=== PATIENT | male | born 1965 | race Caucasian/White ===

== ENCOUNTER 2023-06-26 15:11 | Emergency (ER) | payer SELFPAY ==
[2023-06-26] MEDS ORDERED: DOXYCYCLINE 100 MG CAP PO ONE (16:37)
[2023-06-26] MEDS ORDERED: CEPHALEXIN 250 MG CAP ONE (16:37)
--- NOTE | 2023-06-26 17:46 | RAD REPORT ---
EXAM DESCRIPTION: US - Extremity Venous Uni Ltd - 06/26/2023 5:00 pm CLINICAL HISTORY: SWELLING Leg swelling and edema. COMPARISON: No comparisons FINDINGS: Left lower extremity venous system was interrogated with Doppler technique. Normal flow, c ompressibility and augmentation was noted. There is no DVT present. IMPRESSION: No evidence of left lower extremity deep venous thrombosis.
--- NOTE | 2023-06-26 17:52 | ER ---
Nurse's Notes [facility] Name: Curt Farley Age: 57 yrs Sex: Male : 1965 Arrival Date: 06/26/2023 Time: 15:11 Bed 11 Private MD: Diagnosis: Edema, unspecified;Pain in left lower leg;Cellulitis of left lower limb-partially treated Presentation: 06/26 15:48 Chief complaint: Left leg swelling x 2 weeks. Hx of DVT, takes Xarelto. Recently hb completed doxycycline and Keflex for left legcellulitis. Coronavirus screen: At this time, the client does not indicate any symptoms associated with coronavirus-19. Ebola Screen: No symptoms or risks identified at this time. Initial Sepsis Screen: Does the patient meet any 2 criteria? No. Patient's initial sepsis screen is negative. Does the patient have a suspected source of infection? No. Patient's initial sepsis screen is negative. Risk Assessment: Do you want to hurt yourself or someone else? Patient reports no desire to harm self or others. Onset of symptoms was June 12, 2023. 15:48 Method Of Arrival: Ambulatory hb 15:48 Acuity: CINDY 3 hb Historical: - Allergies: 15:52 No Known Allergies; hb - PMHx: 15:51 DM2; Hypertension; DVT; hb - Immunization history:: Adult Immunizations up to date. - Social history:: Smoking status: Patient reports the use of cigarette tobacco products, denies chronic smoking, but will smoke occasionally. Screenin:28 [facility] ED Fall Risk Assessment (Adult) History of falling in the last 3 months, tm6 including since admission No falls in past 3 months (0 pts). Abuse screen: Denies threats or abuse. Denies injuries from another. Nutritional screening: No deficits noted. Tuberculosis screening: No symptoms or risk factors identified. Assessment: 16:28 General: Appears in no apparent distress. Behavior is calm, cooperative. Pain: tm6 Complains of pain in right leg and left leg. Neuro: Level of Consciousness is awake, alert, obeys commands, Oriented to person, place, time, situation. Cardiovascular: Capillary refill < 3 seconds Patient's skin is warm and dry. Respiratory: Airway is patent Respiratory effort is even, unlabored, Respiratory pattern is regular, symmetrical. GI: Abdomen is round non-distended. : No signs and/or symptoms were reported regarding the genitourinary system. EENT: No signs and/or symptoms were reported regarding the EENT system. Derm: Reports cellulitis on legs. Musculoskeletal: No signs and/or symptoms reported regarding the musculoskeletal system. Vital Signs: 15:48 BP 157 / 78; Pulse 90; Resp 20; Temp 99.2; Pulse Ox 99% on R/A; Weight 111.13 kg; hb Height 5 ft. 7 in. ; Pain 3/10; 16:28 BP 140 / 77; Pulse 85; Resp 19; Pulse Ox 98% ; tm6 15:48 Body Mass Index 38.37 (111.13 kg, 170.18 cm) hb 15:48 Pain Scale: Adult hb ED Course: 15:13 Patient arrived in ED. rg4 15:23 Ryann Rodarte FNP-C is PHCP. snw 15:23 Tae Brown DO is Attending Physician. snw 15:51 Triage completed. hb 15:52 Arm band placed on. hb 16:21 Zabrina Gold, PAN is Primary Nurse. tm6 16:28 Patient has correct armband on for positive identification. Bed in low position. Call tm6 light in reach. Side rails up X2. Provided Education on: antibiotics. Client placed on continuous cardiac and pulse oximetry monitoring. NIBP monitoring applied. Door closed. Noise minimized. 16:28 No provider procedures requiring assistance completed. tm6 17:02 US Extremity Venous Unilateral Ltd In Process Unspecified. EDMS 17:40 Primary Nurse role handed off by Zabrina Gold RN 17:40 Karina Islas RN is Primary Nurse. iw Administered Medications: 16:28 Drug: Doxycycline PO 100 mg PO once Route: PO; tm6 16:28 Drug: Cephalexin PO 500 mg PO once Route: PO; tm6 Medication: 16:28 VIS not applicable for this client. tm6 Outcome: 17:52 Discharge ordered by . snw 18:17 Patient left the ED. iw Signatures: Dispatcher [employer] EDMS Ryann Rodarte FNP-C FNP-Karina Najera RN RN Malka Haney RN RN hb Garcia, Rubi rg4 Zabrina Gold RN RN tm6 Corrections: (The following items were deleted from the chart) 15:52 15:48 BP 157 / 78; Pulse 90bpm; Resp 20bpm; Pulse Ox 99% RA; hb hb
--- NOTE | 2023-06-26 17:52 | EDPHYS ---
Physician Documentation [facility] Name: Curt Farley Age: 57 yrs Sex: Male : 1965 Arrival Date: 06/26/2023 Time: 15:11 Bed 11 Private MD: ED Physician Tae Brown HPI: 06/26 16:09 This 57 yrs old Male presents to ER via Ambulatory with complaints of Leg Swelling. snw 16:09 The patient presents with swelling. The complaints affect the lateral aspect of left snw calf, left calf and medial aspect of left calf. The patient has experienced a previous episode. as noted. Historical: - Allergies: 15:52 No Known Allergies; hb - PMHx: 15:51 DM2; Hypertension; DVT; hb - Immunization history:: Adult Immunizations up to date. - Social history:: Smoking status: Patient reports the use of cigarette tobacco products, denies chronic smoking, but will smoke occasionally. ROS: 16:06 Constitutional: Negative for fever, chills, and weight loss, Eyes: Negative for injury, snw pain, redness, and discharge, ENT: Negative for injury, pain, and discharge, Neck: Negative for injury, pain, and swelling, Cardiovascular: Negative for chest pain, palpitations, and edema, Respiratory: Negative for shortness of breath, cough, wheezing, and pleuritic chest pain, Abdomen/GI: Negative for abdominal pain, nausea, vomiting, diarrhea, and constipation, Back: Negative for injury and pain, : Negative for injury, bleeding, discharge, and swelling, Skin: Negative for injury, rash, and discoloration, Neuro: Negative for headache, weakness, numbness, tingling, and seizure, Psych: Negative for depression, anxiety, suicide ideation, homicidal ideation, and hallucinations, 16:06 MS/extremity: Positive for swelling, of the left leg, Exam: 16:03 Constitutional: This is a well developed, well nourished patient who is awake, alert, snw and in no acute distress. Head/Face: Normocephalic, atraumatic. Eyes: Pupils equal round and reactive to light, extra-ocular motions intact. Lids and lashes normal. Conjunctiva and sclera are non-icteric and not injected. Cornea within normal limits. Periorbital areas with no swelling, redness, or edema. ENT: Nares patent. No nasal discharge, no septal abnormalities noted. Tympanic membranes are normal and external auditory canals are clear. Oropharynx with no redness, swelling, or masses, exudates, or evidence of obstruction, uvula midline. Mucous membranes moist. Neck: Trachea midline, no thyromegaly or masses palpated, and no cervical lymphadenopathy. Supple, full range of motion without nuchal rigidity, or vertebral point tenderness. No Meningismus. Chest/axilla: Normal chest wall appearance and motion. Nontender with no deformity. No lesions are appreciated. Cardiovascular: Regular rate and rhythm with a normal S1 and S2. No gallops, murmurs, or rubs. Normal PMI, no JVD. No pulse deficits. Respiratory: Lungs have equal breath sounds bilaterally, clear to auscultation and percussion. No rales, rhonchi or wheezes noted. No increased work of breathing, no retractions or nasal flaring. Abdomen/GI: Soft, non-tender, with normal bowel sounds. No distension or tympany. No guarding or rebound. No evidence of tenderness throughout. Back: No spinal tenderness. No costovertebral tenderness. Full range of motion. Neuro: Awake and alert, GCS 15, oriented to person, place, time, and situation. Cranial nerves II-XII grossly intact. Motor strength 5/5 in all extremities. Sensory grossly intact. Cerebellar exam normal. Normal gait. Psych: Awake, alert, with orientation to person, place and time. Behavior, mood, and affect are within normal limits. 16:03 Musculoskeletal/extremity: Calves: are tender, on left, 16:03 Skin: Appearance: normal except for affected area, Color: normal in color, left lower ext is site of previous cellulitis. Pt took one week of abx and the area improved. Left lower ext with edema. Will US to rule out clot, Vital Signs: 15:48 BP 157 / 78; Pulse 90; Resp 20; Temp 99.2; Pulse Ox 99% on R/A; Weight 111.13 kg; hb Height 5 ft. 7 in. ; Pain 3/10; 16:28 BP 140 / 77; Pulse 85; Resp 19; Pulse Ox 98% ; tm6 15:48 Body Mass Index 38.37 (111.13 kg, 170.18 cm) hb 15:48 Pain Scale: Adult hb MDM: 15:52 Patient medically screened. snw 16:06 Differential diagnosis: cellulitis, DVT. Data reviewed: vital signs, nurses notes. I snw considered the following discharge prescriptions or medication management in the emergency department Medications were administered in the Emergency Department. See MAR. Counseling: I had a detailed discussion with the patient and/or guardian regarding the historical points, exam findings, and any diagnostic results supporting the discharge/admit diagnosis. ED course: Pt works in this area. Went to in May for Cellulitis to left lower ext. Pt drove home to [place]. Saw his PCP, taken off Bactrim and placed on Keflex and Doxy. Pt noted area improving but only had enough abx for one week. Drove back to [place] and now left lower ext is swollen. Will US. Pt has had previous DVT and is on xarelto and asa.. 06/26 15:53 Order name: US Extremity Venous Unilateral Ltd; Complete Time: 17:47 snw Administered Medications: 16:28 Drug: Doxycycline PO 100 mg PO once Route: PO; tm6 16:28 Drug: Cephalexin PO 500 mg PO once Route: PO; tm6 Disposition: 16:29 I was immediately available on-site in the Emergency Department for consultation in the ms3 care of the patient. Disposition Summary: 06/26/23 17:52 Discharge Ordered Notes: Location: Home snw Condition: Stable snw Diagnosis - Edema, unspecified snw - Pain in left lower leg snw - Cellulitis of left lower limb - partially treated snw Followup: snw - With: Emergency Department - When: As needed - Reason: Worsening of condition Followup: snw - With: Private Physician - When: 2 - 3 days - Reason: Recheck today's complaints, Continuance of care, Re-evaluation by your physician Discharge Instructions: - Discharge Summary Sheet snw - Cellulitis, Adult snw - Edema snw - Heat Therapy snw Forms: - Medication Reconciliation Form snw - Thank You Letter snw - Antibiotic Education snw - Prescription Opioid Use snw - Patient Portal Instructions snw - Leadership Thank You Letter snw Prescriptions: - acetaminophen-codeine 300-30 mg Oral tablet - take 1 tablet ORAL route every 8 hours as needed for pain; 12 tablet; Refills: snw 0, Product Selection Permitted - Cephalexin 500 mg Oral Capsule - take 1 capsule ORAL route every 8 hours for 10 days; 30 capsule; Refills: 0, snw Product Selection Permitted - Doxycycline Hyclate 100 mg Oral Tablet - take 1 tablet ORAL route every 12 hours; 20 tablet; Refills: 0, Product snw Selection Permitted Signatures: Dispatcher [employer] Ryann Bradley, PER DIEM RN-C PER DIEM RN-Csnw Malka Haney RN RN Tae Brown, DO ms3 Zabrina Gold RN RN tm6
[2023-06-26 18:21] VITALS: TEMP 99.2
[2023-06-26 18:23] VITALS: BP 140/77; O2SAT 98
== END 2023-06-26 18:17 | disposition home or self-care (01) ==
LOC: ER 15:11
DX: R60.9 Edema, unspecified (principal); L03.116 Cellulitis of left lower limb; M79.662 Pain in left lower leg
CPT/HCPCS: 93971; 99283